=== PATIENT | female | born 1995 | race African-American/Black ===

== ENCOUNTER 2020-05-26 21:49 | Emergency (ER) | payer OTHER, MEDICAID ==
[~2020-05-26] VITALS: Ht 167.6 cm; Wt 73.0 kg
[2020-05-26 21:51] VITALS: BP 132/72
[2020-05-26] MEDS ORDERED: METHYLPREDNISOLONE SOD SUCC 125 MG/2 ML VIAL IM ONE (22:30)
[2020-05-26] MEDS ORDERED: FAMOTIDINE 20MG TABLET PO ONE (22:30)
== END 2020-05-26 23:35 | disposition home or self-care (01) ==
LOC: ER 21:49
DX: L50.0 Allergic urticaria (principal)
CPT/HCPCS: 81025; 96372; 99283; J2930